=== PATIENT | female | born 1980 | race Caucasian/White ===

== ENCOUNTER → 2016-09-24 | Outpatient (REF) | payer OTHER | LOC: M LAB REF 17:14 | PROVIDERS: ATTEND Obstetrics & Gynecology | DX: Z34.83 Encounter for supervision of other normal pregnancy, third trimester (principal) ==

== ENCOUNTER 2016-10-23 00:56 | Inpatient (IN) | payer OTHER ==
[2016-10-23] VITALS (19 sets, daily range): BP systolic 96–129; BP diastolic 56–93
[~2016-10-23] VITALS: Ht 172.7 cm; Wt 78.0 kg
[2016-10-23] MEDS ORDERED: LACTATED RINGER'S 1000 ML IV STA (01:04)
[2016-10-23] MEDS ORDERED: LR 1,000 ML IV SCH (01:04)
[2016-10-23] MEDS ORDERED: FENTANYL 2MCG/ML ROPIVACAINE 0.2% NACL 250 ML CADD As Ordered ONE (01:39)
[2016-10-23 01:42] LABS: MEAN CORPUSCULAR HEMOGLOBIN 32.9 pg (27.0-33.0); MEAN CORPUSCULAR HGB CONC 34.6 g/dl (32.0-36.5); MEAN CORPUSCULAR VOLUME 94.9 fl (80.0-96.0); RED CELL DISTRIBUTION WIDTH 13.4 % (11.5-14.5)
[2016-10-23] MEDS ORDERED: EPIDURAL/PCA KEYS XX PRN (02:11)
[2016-10-23] MEDS ORDERED: LACTATED RINGER'S 1000 ML IV PRN (02:11)
[2016-10-23] MEDS ORDERED: ONDANSETRON 4MG/2ML VIAL (J2405) IV PRN ×2 (02:11→06:30)
[2016-10-23] MEDS ORDERED: NALOXONE INJ 0.4 MG/1 ML VIAL (J2310) IV PRN (02:11)
[2016-10-23] MEDS ORDERED: FENTANYL/ROPIVACAINE/NACL CADD 250 ML EPIDURAL SCH (02:11)
[2016-10-23] MEDS ORDERED: diphenhydrAMINE INJ 50MG/ML VIAL (J1200) IV PRN (02:11)
[2016-10-23] MEDS ORDERED: REFRIGERATOR IV KEYS XX PRN (02:11)
[2016-10-23] MEDS ORDERED: EPIDURAL COMMENT XX SCH (02:11)
[2016-10-23] MEDS ORDERED: ePHEDrine SULFATE 25 MG/5 ML(5MG/ML) SYRINGE IV PRN (02:11)
[2016-10-23] MEDS ORDERED: OXYTOCIN 30 UNITS IN 0.9% NaCl 500ML IV BAG (J2590) As Ordered ONE (03:01)
[2016-10-23] MEDS ORDERED: OXYTOCIN DRIP 30 UNITS in APPROPRIATE DILUENT 1 EA IV SCH (06:26)
[2016-10-23] MEDS ORDERED: DOCUSATE SODIUM 100 MG CAP PO PRN (06:30)
[2016-10-23] MEDS ORDERED: RHOGAM 300 MCG (1500 IU) INJ (J2790) IM SCH (06:30)
[2016-10-23] MEDS ORDERED: MEASLES,MUMPS,RUBELLA VACCINE INJ (MMR-II) (90707) SC SCH (06:30)
[2016-10-23] MEDS ORDERED: DIBUCAINE 1% OINTMENT 30GM TOP PRN (06:30)
[2016-10-23] MEDS ORDERED: ACETAMINOPHEN 500 MG TAB PO PRN (06:30)
[2016-10-23] MEDS ORDERED: PROMETHAZINE 25 MG TAB PO PRN (06:30)
[2016-10-23] MEDS: LR 1,000 ML IV SCH ×2 (09:21→14:26)
[2016-10-23] MEDS: PRENATAL VITAMIN TAB PO SCH (10:11)
[2016-10-23] MEDS: IBUPROFEN 800 MG TAB PO PRN (10:11)
[2016-10-24] MEDS: IBUPROFEN 800 MG TAB PO PRN (04:46)
[2016-10-24 05:42] VITALS: BP 115/60
[2016-10-24] MEDS: PRENATAL VITAMIN TAB PO SCH (07:50)
[2016-10-24] MEDS ORDERED: PRENTAB9 PO (12:54)
[2016-10-24] MEDS ORDERED: ACET50TA PO (12:55)
[2016-10-24] MEDS ORDERED: IBUP-1114 PO (12:56)
== END 2016-10-24 13:50 | disposition home or self-care (01) | DRG 560 ==
LOC: M LDI 00:56 → M OBS 08:04
PROVIDERS: ADMIT Obstetrics & Gynecology; ATTEND Obstetrics & Gynecology
PROC: 10E0XZZ Delivery of Products of Conception, External Approach (ICD-10-PCS; principal; 2016-10-23)
DX: O48.0 Post-term pregnancy (principal); Z87.891 Personal history of nicotine dependence; Z37.0 Single live birth; Z3A.40 40 weeks gestation of pregnancy; Z83.3 Family history of diabetes mellitus; Z81.8 Family history of other mental and behavioral disorders; Z83.49 Family history of other endocrine, nutritional and metabolic diseases

== ENCOUNTER → 2017-04-25 | Outpatient (CLI) | payer OTHER ==
[~2017-04-25] MED LIST: ACET50TA PO; IBUP-1114 PO; PRENTAB9 PO
[2017-04-25 18:11] LABS: BASO # 0.1 K/mm3 (0.0-0.2); BASO % 0.6 % (0.0-1.0); EOS # 0.1 K/mm3 (0.0-0.50); EOS % 0.6 % (0.0-3.0); LARGE UNSTAINED CELL # 0.1 K/mm3 (0.0-0.4); LARGE UNSTAINED CELL % 1.1 % (0.0-4.0); LYMPH # 2.6 K/mm3 (1.5-4.5); LYMPH % 24.4 % (24.0-44.0); MEAN CORPUSCULAR HEMOGLOBIN 32.4 pg (27.0-33.0); MEAN CORPUSCULAR HGB CONC 36.1 g/dl (32.0-36.5); MEAN CORPUSCULAR VOLUME 89.6 fl (80.0-96.0); MONO # 0.5 K/mm3 (0.0-0.8); MONO % 4.4 % (0.0-5.0); NEUTROPHILS # 7.1 K/mm3 (1.8-7.7); NEUTROPHILS % 68.8 % (36.0-66.0); PLATELET COUNT, AUTOMATED 278 k/mm3 (150-450); RED CELL DISTRIBUTION WIDTH 12.9 % (11.5-14.5); WHITE BLOOD COUNT 10.3 K/mm3 (4.0-10.0)
[2017-04-28 11:06] LABS: HBsAg Prenatal NEGATIVE (NEGATIVE)
== END ==
LOC: M SMT 13:26
PROVIDERS: ATTEND Obstetrics & Gynecology
DX: Z34.81 Encounter for supervision of other normal pregnancy, first trimester (principal)

== ENCOUNTER → 2017-06-20 | Outpatient (CLI) | payer OTHER ==
--- NOTE | 2017-06-20 14:24 | REP ---
Obstetric ultrasonography, twin gestation for anatomy: There is a diamniotic dichorionic twin gestation. Twin A is in a vertex presentation on the maternal left. Twin B is in a breech elevation of the on the maternal right. The placenta is posterior for twin A and anterior for twin B. Both placentas are grade zero. There is no placenta previa or abruptio of either placenta. The cervix measures 5.14 cm in length. The heart rate for twin A is 144 beats per minute and 2140 beats per minute. By today's measurements twin A measures 18 weeks 14 days gestational age and 20 being measures 18 weeks 1 day gestational age. The DEISI for 18 weeks 1 day is 11/20/2017. The weight for twin A is 240 grams (0 pounds, 8 ounces). This is the 60th percentile. The weight for twin B is 229 grams (0 pounds, 8 ounces). This is the 50th percentile. The amniotic fluid volume is normal for each twin. The deepest amniotic pocket for twin A is in 4.6 cm and for twin B 5.9 cm. The following anatomic structures are identified and are normal for both twins: Cranium, choroid plexus, cavum septum pellucidum, intracranial lateral ventricles, cerebellum, upper lip, diaphragm, stomach, cord insertion, three-vessel cord, kidneys, bladder, spine and upper lower extremities. Suboptimally demonstrated in both twins are: Lungs, four-chamber heart, and the cardiac right and left ventricular outflow tracts. A followup study dedicated to these structures in each twin might be considered. Otherwise, there are no anomalies. Signed by Gamaliel Glover MD 06/20/2017 02:16 P
== END ==
LOC: M RAD 09:58
PROVIDERS: ATTEND Pediatrics
DX: O30.042 Twin pregnancy, dichorionic/diamniotic, second trimester (principal); Z3A.18 18 weeks gestation of pregnancy

== ENCOUNTER → 2017-07-03 | Outpatient (CLI) | payer OTHER ==
--- NOTE | 2017-07-03 12:11 | REP ---
TWIN OB ULTRASOUND: Real-time sonographic evaluation of the gravid uterus performed. There is a diamniotic dichorionic twin gestation, estimated gestational age is 20 weeks with EDC 11/20/2017. Today's measurements indicate appropriate concordant growth. Placenta is posterior for fetus A and anterior for fetus B and grade 0 with no previa or abruption. Cervix is closed and measures 5.5 cm in length. A: BPD 47 mm = 20 weeks 1 day, 54th percentile HC 174 mm = 19 weeks 6 days, 47th percentile AC 149 mm = 20 weeks 1 days, 53rd percentile Femur length 33 mm = 20 weeks 3 days, 62nd percentile HC/AC ratio 1.17. Estimated weight 342 grams, 56th percentile. heart rate 136 beats per minute. Amniotic fluid within normal limits with deepest pocket of fluid around fetus A 5.1 cm. position is breech on the maternal left side. SEEN/GROSSLY UNREMARKABLE Lateral ventricles Yes Posterior fossa Yes Upper lip Yes Four-chamber heart Yes LVOT Yes RVOT Yes Stomach Yes Cord insertion Yes Three vessel cord Yes Kidneys Yes Bladder Yes Spine Yes Fetus B: BPD 47 mm = 20 weeks 1 day, 54th percentile HC 177 mm = 20 weeks 1 day, 56th percentile AC 148 mm = 20 weeks 0 days, 51st percentile Femur length 32 mm = 20 weeks 0 days, 52nd percentile HC/AC ratio 1.20. Estimated weight 330 grams, 49th percentile. heart rate 147 beats per minute. Amniotic fluid within normal limits with deepest pocket of fluid around fetus B 3.9 cm. position vertex on the maternal right side. SEEN/GROSSLY UNREMARKABLE Lateral ventricles Yes Posterior fossa Yes Upper lip Yes Four-chamber heart Yes LVOT Yes RVOT Yes Stomach Yes Cord insertion Yes Three vessel cord Yes Kidneys Yes Bladder Yes Spine Yes Signed by Gamaliel Barajas MD 07/03/2017 02:37 P
== END ==
LOC: M RAD 09:59
PROVIDERS: ATTEND Advanced Practice Midwife
DX: Z34.82 Encounter for supervision of other normal pregnancy, second trimester (principal)

== ENCOUNTER → 2017-08-27 | Outpatient (CLI) | payer OTHER ==
[2017-08-27 14:26] LABS: BASO % 0.2 % (0.0-1.0); EOS # 0.1 10^3/uL (0.0-0.50); EOS % 0.5 % (0.0-3.0); IMMATURE GRANULOCYTE % 0.5 % (0-0); LYMPH # 1.7 10^3/uL (1.5-4.5); LYMPH % 18.7 % (24.0-44.0); MEAN CORPUSCULAR HEMOGLOBIN 33.2 pg (27.0-33.0); MEAN CORPUSCULAR HGB CONC 34.6 g/dl (32.0-36.5); MEAN CORPUSCULAR VOLUME 96.1 fl (80.0-96.0); MONO # 0.7 10^3/uL (0.0-0.8); NEUTROPHILS # 6.6 10^3/uL (1.8-7.7); NEUTROPHILS % 72.1 % (36.0-66.0); PLATELET COUNT, AUTOMATED 195 10^3/uL (150-450); WHITE BLOOD COUNT 9.1 10^3/uL (4.0-10.0)
== END ==
LOC: M SMT 09:03
PROVIDERS: ATTEND Specialist
DX: O30.042 Twin pregnancy, dichorionic/diamniotic, second trimester (principal); Z3A.00 Weeks of gestation of pregnancy not specified

== ENCOUNTER → 2017-09-04 | Outpatient (CLI) | payer OTHER | LOC: M SMT 10:32 | DX: O30.042 Twin pregnancy, dichorionic/diamniotic, second trimester (principal) | CPT/HCPCS: 76812 ==

== ENCOUNTER → 2017-09-04 | Outpatient (CLI) | payer OTHER ==
[2017-09-04 07:50] LABS: GLUCOSE, FASTING 83 MG/DL (LESS THAN 95)
[2017-09-04 08:54] LABS: 1 HR GLUCOSE 112 MG/DL (LESS THAN 180)
== END ==
LOC: M LAB 06:56
DX: O30.043 Twin pregnancy, dichorionic/diamniotic, third trimester (principal)
CPT/HCPCS: 82951

== ENCOUNTER 2017-10-08 17:12 | Outpatient (CLI) | payer OTHER | END 2017-10-08 18:21 | disposition home or self-care (01) | LOC: M LDO 17:12 | DX: O36.8131 Decreased fetal movements, third trimester, fetus 1 (principal); Z3A.33 33 weeks gestation of pregnancy; O30.043 Twin pregnancy, dichorionic/diamniotic, third trimester ==

== ENCOUNTER → 2017-10-10 | Outpatient (CLI) | payer OTHER | LOC: M RAD 12:08 | DX: O30.043 Twin pregnancy, dichorionic/diamniotic, third trimester (principal); Z3A.34 34 weeks gestation of pregnancy | CPT/HCPCS: 76816 ==

== ENCOUNTER → 2017-10-15 | Outpatient (REF) | payer OTHER | LOC: M LAB REF 16:59 | DX: O30.042 Twin pregnancy, dichorionic/diamniotic, second trimester (principal); Z3A.00 Weeks of gestation of pregnancy not specified | CPT/HCPCS: 87081 ==

== ENCOUNTER 2017-11-06 15:33 | Inpatient (IN) | payer OTHER ==
[2017-11-06 17:25] LABS: HEMATOCRIT 38.5 % (36.0-47.0); HEMOGLOBIN 13.8 g/dl (12.0-16.0); MEAN CORPUSCULAR HEMOGLOBIN 33.7 pg (27.0-33.0); MEAN CORPUSCULAR HGB CONC 35.8 g/dl (32.0-36.5); MEAN CORPUSCULAR VOLUME 93.9 fl (80.0-96.0); PLATELET COUNT, AUTOMATED 168 10^3/uL (150-450); RED CELL DISTRIBUTION WIDTH 13.2 % (11.5-14.5); WHITE BLOOD COUNT 8.7 10^3/uL (4.0-10.0)
[2017-11-06 17:37] LABS: AMPHETAMINES URINE REFLEX NEGATIVE (NEGATIVE); BARBITURATES URINE REFLEX NEGATIVE (NEGATIVE); BENZODIAZEPINES URINE REFLEX NEGATIVE (NEGATIVE); CANNABINOIDS URINE REFLEX NEGATIVE (NEGATIVE); COCAINE METABOLITE URINE REFLE NEGATIVE (NEGATIVE); METHADONE URINE REFLEX NEGATIVE (NEGATIVE); OPIATES URINE REFLEX NEGATIVE (NEGATIVE); PHENCYCLIDINE URINE REFLEX NEGATIVE (NEGATIVE)
[2017-11-06] MEDS: LR 1,000 ML IV (17:41)
[2017-11-06] MEDS: OXYTOCIN DRIP 30 UNITS in APPROPRIATE DILUENT 1 EA IV (17:42)
[2017-11-06] MEDS ORDERED: FENTANYL 2MCG/ML ROPIVACAINE 0.2% IN 0.9% NACL 200ML IVBAG As Ordered (19:25)
[2017-11-06] MEDS: LACTATED RINGER'S 1000 ML IV (20:54)
[2017-11-06] MEDS ORDERED: ePHEDrine SULFATE 25 MG/5 ML(5MG/ML) SYRINGE As Ordered (23:30)
[2017-11-06] MEDS ORDERED: diphenhydrAMINE INJ 50MG/ML VIAL (J1200) IV (23:45)
[2017-11-06] MEDS ORDERED: EPIDURAL/PCA KEYS XX (23:45)
[2017-11-06] MEDS ORDERED: REFRIGERATOR IV KEYS XX (23:45)
[2017-11-06] MEDS ORDERED: ePHEDrine SULFATE 25 MG/5 ML(5MG/ML) SYRINGE IV (23:45)
[2017-11-06] MEDS ORDERED: FENTANYL/ROPIVACAINE/NACL BAG 200 ML EPIDURAL (23:45)
[2017-11-06] MEDS ORDERED: ONDANSETRON 4MG/2ML VIAL (J2405) IV (23:45)
[2017-11-06] MEDS ORDERED: EPIDURAL COMMENT XX (23:45)
[2017-11-06] MEDS ORDERED: NALOXONE INJ 0.4 MG/1 ML VIAL (J2310) IV (23:45)
[2017-11-07] MEDS ORDERED: LR 1,000 ML IV (01:18)
[2017-11-07] MEDS ORDERED: ONDANSETRON 4MG/2ML VIAL (J2405) IV (01:30)
[2017-11-07] MEDS ORDERED: PROMETHAZINE 25 MG TAB PO (01:30)
[2017-11-07] MEDS: DIBUCAINE 1% OINTMENT 30GM TOP (04:11)
[2017-11-07] MEDS: IBUPROFEN 800 MG TAB PO ×2 (04:12→14:49)
[2017-11-07] MEDS: PRENATAL VITAMINS CHEWABLE TABLET PO (09:02)
[2017-11-07] MEDS: OXYTOCIN DRIP 30 UNITS in APPROPRIATE DILUENT 1 EA IV (10:17)
[2017-11-07] MEDS: ACETAMINOPHEN 500 MG TAB PO ×2 (10:50→21:34)
[2017-11-07] MEDS: DOCUSATE SODIUM 100 MG CAP PO (21:34)
[2017-11-08] MEDS: MEASLES,MUMPS,RUBELLA VACCINE INJ (MMR-II) (90707) SC (04:49)
[2017-11-08] MEDS: RHOGAM 300 MCG (1500 IU) INJ (J2790) IM (04:49)
[2017-11-08] MEDS: IBUPROFEN 800 MG TAB PO (06:22)
[2017-11-08] MEDS: PRENATAL VITAMINS CHEWABLE TABLET PO (08:40)
== END 2017-11-08 13:24 | disposition home or self-care (01) | DRG 560 ==
LOC: M LDI 15:33 → M OBS 11-07 02:56
PROVIDERS: Obstetrics & Gynecology
PROC: 3E033VJ Introduction of Other Hormone into Peripheral Vein, Percutaneous Approach (ICD-10-PCS; 2017-11-06)
PROC: 10907ZC Drainage of Amniotic Fluid, Therapeutic from Products of Conception, Via Natural or Artificial Opening (ICD-10-PCS; 2017-11-06)
PROC: 10E0XZZ Delivery of Products of Conception, External Approach (ICD-10-PCS; principal; 2017-11-07)
DX: O30.043 Twin pregnancy, dichorionic/diamniotic, third trimester (principal); Z37.2 Twins, both liveborn; Z3A.38 38 weeks gestation of pregnancy; O69.81X2 Labor and delivery complicated by cord around neck, without compression, fetus 2

== ENCOUNTER 2018-01-16 07:32 | Day surgery (SDC) | payer OTHER ==
[2018-01-16] MEDS ORDERED: LR 1,000 ML IV ×3 (07:45→10:30)
[2018-01-16 08:15] LABS: HEMATOCRIT 41.2 % (36.0-47.0); HEMOGLOBIN 14.3 g/dl (12.0-15.5); MEAN CORPUSCULAR HEMOGLOBIN 32.2 pg (27.0-33.0); MEAN CORPUSCULAR HGB CONC 34.7 g/dl (32.0-36.5); MEAN CORPUSCULAR VOLUME 92.8 fl (80.0-96.0); PLATELET COUNT, AUTOMATED 236 10^3/uL (150-450); RED BLOOD COUNT 4.44 10^6/uL (4.00-5.40); RED CELL DISTRIBUTION WIDTH 12.5 % (11.5-14.5); WHITE BLOOD COUNT 5.8 10^3/uL (4.0-10.0)
[2018-01-16] MEDS ORDERED: fentaNYL 100 MCG/2 ML INJECTION (J3010) As Ordered (08:16)
[2018-01-16] MEDS ORDERED: ONDANSETRON 4MG/2ML VIAL (J2405) As Ordered (08:17)
[2018-01-16] MEDS ORDERED: MIDAZOLAM INJ 2 MG/2 ML VIAL (J2250) As Ordered (08:17)
[2018-01-16] MEDS ORDERED: METOCLOPRAMIDE INJ 10MG/2ML VIAL (J2765) As Ordered (08:17)
[2018-01-16] MEDS ORDERED: ROCURONIUM BROMIDE 50 MG/5 ML VIAL As Ordered (08:17)
[2018-01-16] MEDS ORDERED: PROPOFOL 200 MG/20 ML VIAL As Ordered (08:17)
[2018-01-16] MEDS ORDERED: dexameTHASONE 4 MG/ML 1ML VIAL (J1100) As Ordered (08:18)
[2018-01-16] MEDS ORDERED: LIDOCAINE 2% INJ 100 MG/5 ML SDV (FOR ANES.) As Ordered (08:18)
[2018-01-16] MEDS ORDERED: KETOROLAC 60 MG/2 ML VIAL (J1885) As Ordered (08:18)
[2018-01-16 08:36] LABS: CONTROL LINE HCG INT CTR LINE PRESENT; HCG, SERUM QUALITATIVE NEGATIVE (NEGATIVE)
[2018-01-16] MEDS ORDERED: GLYCOPYRROLATE INJ 0.2 MG/ML 2 ML VIAL As Ordered (09:35)
[2018-01-16] MEDS: BUPIVACAINE HCL 0.25% 30 ML VIAL As Ordered (09:56)
[2018-01-16] MEDS ORDERED: MEPERIDINE INJ 25 MG/ML VIAL (J2175) As Ordered (10:13)
[2018-01-16] MEDS: MEPERIDINE INJ 25 MG/ML VIAL (J2175) IV (10:14)
[2018-01-16] MEDS ORDERED: ONDANSETRON 4MG/2ML VIAL (J2405) IV (10:15)
[2018-01-16] MEDS ORDERED: fentaNYL 100 MCG/2 ML INJECTION (J3010) IV (10:15)
== END 2018-01-16 12:41 | disposition home or self-care (01) ==
LOC: M SDC 07:32
DX: Z30.2 Encounter for sterilization (principal); F32.9 Major depressive disorder, single episode, unspecified; Z79.899 Other long term (current) drug therapy
CPT/HCPCS: 58661